=== PATIENT | female | born 1950 | race Caucasian/White ===

== ENCOUNTER → 2021-06-21 | Outpatient (CLI) | payer OTHER, MEDICAID ==
--- NOTE | 2021-06-21 13:21 | RAD ---
EXAM: Chest, 2 views. HISTORY: Cough. COMPARISON: None. FINDINGS: 2 views of the chest are obtained. There is mild diffuse interstitial prominence. There is no consolidation, pleural effusion or pneumothorax. There is a prominent cardiac silhouette. There is thoracic kyphoscoliosis. IMPRESSION: Suspected chronic diffuse interstitial prominence. No consolidated infiltrate is seen. Electronically signed by: Deb Ramos MD (06/21/2021 1:19 PM) [id number]
== END ==
LOC: RAD 11:57
PROVIDERS: ATTEND Nurse Practitioner Family
DX: M41.84 Other forms of scoliosis, thoracic region (principal); R05.8 Other specified cough
CPT/HCPCS: 71046